=== PATIENT | male | born 1945 | race Caucasian/White ===

== ENCOUNTER → 2018-01-09 | Outpatient (CLI) | payer MEDICARE ==
--- NOTE | 2018-01-09 20:05 | Diagnostic Imaging Report ---
PROCEDURE: CT CHEST WITHOUT CONTRAST CT scan of the chest WITHOUT intravenous contrast, using standard protocol. TECHNIQUE: The chest was scanned utilizing a multidetector helical scanner from the apex to the level of the adrenal glands. No IV contrast was administered per physician's request. Coronal and sagittal multiplanar reformations were obtained. COMPARISON: [facility], CT, CT CHEST WO, 09/28/2017, 16:13. INDICATIONS: COPD FINDINGS: Lines/tubes: None. Lungs and Airways: No interval change in marked bilateral centrilobular emphysematous changes. Stable 0.8-0.9 cm groundglass nodule in the left posterior apex (series 3, image 25). No other nodules. No masses or consolidation. Stable linear scarring in the medial lingula (series 3, image 93). Airways are clear, without endobronchial lesions. Pleura: No effusion, or pneumothorax. Heart and mediastinum: Thyroid is unremarkable. The heart size is normal. No pericardial effusion. Atherosclerotic calcification of the coronary arteries and thoracic aorta. Stable ectasia of the ascending aorta, which measures 4.1 x 4.1 cm. Main pulmonary artery is normal in caliber. Soft tissues: Normal. Lymph nodes: No mediastinal, hilar, or axillary adenopathy. Calcified bilateral hilar nodes Abdomen: Limited views of the upper abdomen. Stable pneumobilia in the liver. Previously described bilateral adrenal nodules are not imaged on the current exam. Visualized portions of the spleen, and stomach are unremarkable. Bones: No aggressive lytic lesion. Stable anterior wedge deformity of the T9 vertebral body with approximately 40% height loss. IMPRESSION: 1. Stable 0.8-0.9 cm purely groundglass nodule in the left apex since prior CT dated 09/18/2017. Since the current scan was performed before the recommended time of 6-12 months to document persistence, recommend followup low dose, nodule protocol noncontrast chest CT in 6 months. Kash Faith M.D. Dictated by: Kash Faith M.D. on 01/09/2018 at 20:05 Electronically approved by: Kash Faith M.D. on 01/09/2018 at 20:05
== END ==
LOC: CT 17:24
PROVIDERS: ATTEND Internal Medicine Critical Care Medicine
DX: J44.9 Chronic obstructive pulmonary disease, unspecified (principal)
CPT/HCPCS: 71250